=== PATIENT | female | born 1985 | race Two or more races ===

== ENCOUNTER 2021-01-20 14:05 | Emergency (ER) | payer MEDICAID, OTHER ==
[~2021-01-20] VITALS: Ht 165.1 cm; Wt 145.4 kg
[~2021-01-20 14:05] MED LIST: HYDR25TA2 PO; LEVE500T53 PO; METO50 PO; OMEP20 PO; RISP1TAB48 PO
[2021-01-20 15:15] VITALS: BP 150/70
[2021-01-20] MEDS ORDERED: IBUPROFEN 600 MG TABLET PO ONE (15:15)
== END 2021-01-20 15:30 | disposition home or self-care (01) ==
LOC: EMS 14:05
DX: K02.9 Dental caries, unspecified (principal); K05.10 Chronic gingivitis, plaque induced; F32.9 Major depressive disorder, single episode, unspecified; I10 Essential (primary) hypertension; F17.210 Nicotine dependence, cigarettes, uncomplicated; F12.90 Cannabis use, unspecified, uncomplicated
CPT/HCPCS: 99283

== ENCOUNTER 2021-12-23 03:38 | Inpatient (IN) | payer MEDICAID, OTHER ==
[~2021-12-23] VITALS: Ht 165.1 cm; Wt 140.2 kg
[~2021-12-23 03:38] MED LIST changes: +LEVE500T20 PO; -LEVE500T53 PO
[2021-12-23] MEDS ORDERED: HALOPERIDOL 5 MG TABLET PO PRN (04:15)
[2021-12-23 04:31] LABS: GLUCOMETER DEV NAME(LOC) POC.BV
[2021-12-23] MEDS ORDERED: ACETAMINOPHEN 325 MG TABLET PO PRN (06:15)
[2021-12-23] MEDS ORDERED: ONDANSETRON HCL 4 MG TABLET PO PRN (06:15)
[2021-12-23] MEDS ORDERED: GuaiFENesin/D-METHORPHAN [SUGAR-FREE] 200-20MG/10 ML SYRUP UDCUP PO PRN (06:15)
[2021-12-23] MEDS ORDERED: PETROLATUM,WHITE 28 GM JELLY TP PRN (06:15)
[2021-12-23] MEDS ORDERED: CloNIDine HCL 0.1 MG TABLET PO PRN (06:15)
[2021-12-23] MEDS ORDERED: ALBUTEROL SULFATE HFA 90 MCG/PUFF 8 GM INHALER IH PRN (06:15)
[2021-12-23] MEDS ORDERED: LOPERAMIDE HCL 2 MG CAPSULE PO PRN (06:15)
[2021-12-23] MEDS ORDERED: MAGNESIUM HYDROXIDE SUSPENSION 30 ML UDCUP PO PRN (06:15)
[2021-12-23] MEDS ORDERED: MAG HYDROX/AL HYDROX/SIMETH ES 30 ML SUSPENSION UDCUP PO PRN (06:15)
[2021-12-23] MEDS ORDERED: DOCUSATE SODIUM 100 MG CAPSULE PO PRN (06:15)
[2021-12-23 07:38] LABS: HEMATOCRIT 39.6 % (36-46); HEMOGLOBIN 12.6 g/dL (12.0-16.0); MEAN CORPUSCULAR HEMOGLOBIN 26.3 pg (26.0-34.0); MEAN CORPUSCULAR HGB CONC 31.9 G/dL (31.0-37.0); MEAN CORPUSCULAR VOLUME 82 fL (80-100); PLATELET COUNT (AUTO) 341 K/uL (150-450); RED BLOOD CELL COUNT(AUTO) 4.81 MIL/uL (4.00-5.20)
[2021-12-23 07:45] LABS: BAND NEUTROPHILS % (MANUAL) 1 % (0-5); LYMPHOCYTES % (MANUAL) 10 % (22-44); MONOCYTES % (MANUAL) 7 % (2-9); SEGMENTED NEUTROPHILS % 82 % (40-70)
[2021-12-23 07:46] LABS: HEMOGLOBIN A1C 6.2 % (3.8-5.6)
[2021-12-23 07:57] LABS: ALANINE AMINOTRANSFERASE 29 U/L (12-78); ALBUMIN 3.5 g/dL (3.4-5.0); ALKALINE PHOSPHATASE 109 U/L (46-116); ANION GAP 11 mmol/L (8-16); ASPARTATE AMINOTRANSFERASE 22 U/L (15-37); BILIRUBIN,TOTAL 0.4 mg/dL (0.1-1.0); CALCIUM, TOTAL 9.3 mg/dL (8.8-10.5); CARBON DIOXIDE 26 mmol/L (22-29); CHLORIDE 99 mmol/L (98-107); CHOL/HDL RATIO 2.3 (3.9-5.7); CHOLESTEROL 142 mg/dL (131-200); CREATININE 0.57 mg/dL (0.60-1.30); GLUCOSE,RANDOM 110 mg/dL (70-110); HDL CHOLESTEROL 63 mg/dL (40-60); LDL CHOL (CALC.) 69 mg/dL (0-130); POTASSIUM 3.6 mmol/L (3.5-5.1); SODIUM SERUM 136 mmol/L (136-145); TRIGLYCERIDES 52 mg/dL (15-150); UREA NITROGEN, BLOOD 6 mg/dL (7-18)
[2021-12-23 07:58] LABS: GLOMERULAR FILTR. RATE CALC > 60 mL/min (>60)
[2021-12-23] MEDS: HYDROCHLOROTHIAZIDE 25 MG TABLET PO SCH (08:10)
[2021-12-23] MEDS: LevETIRAcetam 500 MG TABLET PO SCH ×2 (08:10→16:14)
[2021-12-23] MEDS: OMEPRAZOLE 20 MG CAPSULE PO SCH (08:10)
[2021-12-23] MEDS: METOPROLOL TARTRATE 25 MG TABLET PO SCH ×2 (08:10→16:14)
[2021-12-23 08:26] VITALS: BP 147/88
[2021-12-23 08:28] LABS: THYROID STIMULATING HORMONE 2.03 uIU/mL (0.36-3.74)
[2021-12-23] MEDS: RisperiDONE 1 MG TABLET PO SCH ×2 (11:17→20:06)
[2021-12-23 16:07] VITALS: BP 132/71
[2021-12-23] MEDS: LORazepam 2 MG TABLET PO PRN (16:14)
[2021-12-24 00:17] VITALS: BP 130/68
[2021-12-24] MEDS: IBUPROFEN 400 MG TABLET PO PRN (01:26)
[2021-12-24 07:46] LABS: BASOPHILS % (AUTO) 0.5 % (0.0-2.0); EOSINOPHILS % (AUTO) 0.2 % (1.0-6.0); HEMATOCRIT 41.7 % (36-46); HEMOGLOBIN 13.4 g/dL (12.0-16.0); LYMPHOCYTES # (AUTO) 2.5 K/uL (1.0-4.8); LYMPHOCYTES % (AUTO) 16.9 % (22.0-44.0); MEAN CORPUSCULAR HEMOGLOBIN 26.5 pg (26.0-34.0); MEAN CORPUSCULAR HGB CONC 32.1 G/dL (31.0-37.0); MEAN CORPUSCULAR VOLUME 83 fL (80-100); MONOCYTES # (AUTO) 1.4 K/uL (0.1-1.0); MONOCYTES % (AUTO) 9.3 % (2.0-9.0); NEUTROPHILS # (AUTO) 10.8 K/uL (1.8-7.7); NEUTROPHILS % (AUTO) 73.1 % (40.0-70.0); PLATELET COUNT (AUTO) 322 K/uL (150-450); RED BLOOD CELL COUNT(AUTO) 5.05 MIL/uL (4.00-5.20)
[2021-12-24 07:52] LABS: HEMOGLOBIN A1C 6.2 % (3.8-5.6)
[2021-12-24 08:05] VITALS: BP 126/84
[2021-12-24] MEDS: LevETIRAcetam 500 MG TABLET PO SCH ×2 (08:07→17:01)
[2021-12-24] MEDS: HYDROCHLOROTHIAZIDE 25 MG TABLET PO SCH (08:07)
[2021-12-24] MEDS: OMEPRAZOLE 20 MG CAPSULE PO SCH (08:07)
[2021-12-24] MEDS: RisperiDONE 1 MG TABLET PO SCH ×2 (08:07→20:10)
[2021-12-24] MEDS: METOPROLOL TARTRATE 50 MG TABLET PO SCH ×2 (08:09→17:01)
[2021-12-24 08:37] LABS: ALANINE AMINOTRANSFERASE 29 U/L (12-78); ALBUMIN 3.3 g/dL (3.4-5.0); ALKALINE PHOSPHATASE 102 U/L (46-116); ANION GAP 10 mmol/L (8-16); ASPARTATE AMINOTRANSFERASE 20 U/L (15-37); BILIRUBIN,TOTAL 0.3 mg/dL (0.1-1.0); CALCIUM, TOTAL 9.5 mg/dL (8.8-10.5); CARBON DIOXIDE 29 mmol/L (22-29); CHLORIDE 97 mmol/L (98-107); CHOL/HDL RATIO 2.2 (3.9-5.7); CHOLESTEROL 139 mg/dL (131-200); CREATININE 0.68 mg/dL (0.60-1.30); FREE T4 (FREE THYROXINE) 1.46 ng/dL (0.76-1.46); GLOMERULAR FILTR. RATE CALC > 60 mL/min (>60); GLUCOSE,RANDOM 101 mg/dL (70-110); HCG,QUANTITATIVE < 1 mIU/mL (0-6); HDL CHOLESTEROL 62 mg/dL (40-60); LDL CHOL (CALC.) 64 mg/dL (0-130); POTASSIUM 3.3 mmol/L (3.5-5.1); SODIUM SERUM 136 mmol/L (136-145); THYROID STIMULATING HORMONE 2.01 uIU/mL (0.36-3.74); TOTAL PROTEIN, SERUM 8.2 g/dL (6.4-8.2); TRIGLYCERIDES 63 mg/dL (15-150); UREA NITROGEN, BLOOD 11 mg/dL (7-18)
[2021-12-24] MEDS ORDERED: POTASSIUM CHLORIDE 20 MEQ ER TABLET PO ONE (14:00)
[2021-12-24 16:32] VITALS: BP 105/68
[2021-12-24 17:00] VITALS: BP 132/88
[2021-12-25] MEDS: ZOLPIDEM TARTRATE 10 MG TABLET PO PRN (02:28)
[2021-12-25 03:47] VITALS: BP 146/83
[2021-12-25 09:05] VITALS: BP 138/86
[2021-12-25] MEDS: METOPROLOL TARTRATE 50 MG TABLET PO SCH ×2 (09:05→16:08)
[2021-12-25] MEDS: LevETIRAcetam 500 MG TABLET PO SCH ×2 (09:05→16:08)
[2021-12-25] MEDS: RisperiDONE 1 MG TABLET PO SCH ×2 (09:05→20:12)
[2021-12-25] MEDS: NICOTINE 14 MG/24 HOUR PATCH TD PRN (09:05)
[2021-12-25] MEDS: HYDROCHLOROTHIAZIDE 25 MG TABLET PO SCH (09:05)
[2021-12-25] MEDS: OMEPRAZOLE 20 MG CAPSULE PO SCH (09:05)
[2021-12-25] MEDS: LORazepam 2 MG TABLET PO PRN (15:43)
[2021-12-25 16:59] VITALS: BP 159/89
[2021-12-25 18:00] VITALS: BP 133/88
[2021-12-26 05:40] VITALS: BP 144/89
[2021-12-26 08:29] VITALS: BP 145/84
[2021-12-26 08:54] LABS: AMPHET/METH SCREEN,URINE NEGATIVE (NEGATIVE); BARBITURATE SCREEN, URINE NEGATIVE (NEGATIVE); BENZODIAZEPINES SCREEN,URINE NEGATIVE (NEGATIVE); CANNABINOID SCREEN,URINE POSITIVE (NEGATIVE); COCAINE SCREEN,URINE NEGATIVE (NEGATIVE); METHADONE SCREEN, URINE NEGATIVE (NEGATIVE); OPIATE SCREEN,URINE NEGATIVE (NEGATIVE)
[2021-12-26 08:56] LABS: PHENCYCLIDINE SCREEN,URINE NEGATIVE (NEGATIVE)
[2021-12-26] MEDS: HYDROCHLOROTHIAZIDE 25 MG TABLET PO SCH (09:42)
[2021-12-26] MEDS: RisperiDONE 1 MG TABLET PO SCH ×2 (09:42→20:59)
[2021-12-26] MEDS: OMEPRAZOLE 20 MG CAPSULE PO SCH (09:42)
[2021-12-26] MEDS: LevETIRAcetam 500 MG TABLET PO SCH ×2 (09:42→16:22)
[2021-12-26] MEDS: METOPROLOL TARTRATE 50 MG TABLET PO SCH ×2 (09:43→16:22)
[2021-12-26] MEDS: SERTRALINE HCL 50 MG TABLET PO SCH (10:52)
[2021-12-26 16:48] VITALS: BP 160/75
[2021-12-26 19:08] VITALS: BP 157/71
[2021-12-26] MEDS: ZOLPIDEM TARTRATE 10 MG TABLET PO PRN (21:05)
[2021-12-27 01:26] VITALS: BP 140/90
[2021-12-27] MEDS: LORazepam 2 MG TABLET PO PRN (01:30)
[2021-12-27 08:29] VITALS: BP 152/106
[2021-12-27] MEDS: LevETIRAcetam 500 MG TABLET PO SCH ×2 (09:08→16:12)
[2021-12-27] MEDS: HYDROCHLOROTHIAZIDE 25 MG TABLET PO SCH (09:08)
[2021-12-27] MEDS: METOPROLOL TARTRATE 50 MG TABLET PO SCH ×2 (09:08→16:12)
[2021-12-27] MEDS: OMEPRAZOLE 20 MG CAPSULE PO SCH (09:08)
[2021-12-27] MEDS: SERTRALINE HCL 50 MG TABLET PO SCH (09:08)
[2021-12-27] MEDS: RisperiDONE 1 MG TABLET PO SCH ×2 (09:08→20:08)
[2021-12-27] MEDS: NICOTINE 14 MG/24 HOUR PATCH TD PRN (09:12)
[2021-12-27 13:00] VITALS: BP 146/76
[2021-12-27 16:30] VITALS: BP 150/86
[2021-12-27] MEDS: ZOLPIDEM TARTRATE 10 MG TABLET PO PRN (20:08)
[2021-12-28 00:42] VITALS: BP 140/82
[2021-12-28] MEDS: LORazepam 2 MG TABLET PO PRN ×2 (03:18→16:41)
[2021-12-28 03:21] VITALS: BP 142/93
[2021-12-28 08:10] VITALS: BP 155/95
[2021-12-28] MEDS: OMEPRAZOLE 20 MG CAPSULE PO SCH (08:35)
[2021-12-28] MEDS: RisperiDONE 1 MG TABLET PO SCH ×2 (08:35→20:10)
[2021-12-28] MEDS: LevETIRAcetam 500 MG TABLET PO SCH ×2 (08:35→16:30)
[2021-12-28] MEDS: SERTRALINE HCL 50 MG TABLET PO SCH (08:35)
[2021-12-28] MEDS: HYDROCHLOROTHIAZIDE 25 MG TABLET PO SCH (08:36)
[2021-12-28] MEDS: METOPROLOL TARTRATE 50 MG TABLET PO SCH ×2 (08:36→16:30)
[2021-12-28] MEDS: NICOTINE 14 MG/24 HOUR PATCH TD PRN (12:19)
[2021-12-28 15:16] LABS: GLUCOMETER DEV NAME(LOC) POC.BV
[2021-12-28 16:16] VITALS: BP 145/71
[2021-12-28] MEDS: TraZODone HCL 100 MG TABLET PO SCH (20:10)
[2021-12-29 01:12] VITALS: BP 141/86
[2021-12-29 08:14] VITALS: BP 157/90
[2021-12-29] MEDS: RisperiDONE 1 MG TABLET PO SCH ×2 (08:29→20:55)
[2021-12-29] MEDS: FOLIC ACID 1 MG TABLET PO SCH (08:29)
[2021-12-29] MEDS: METOPROLOL TARTRATE 50 MG TABLET PO SCH ×2 (08:29→16:32)
[2021-12-29] MEDS: SERTRALINE HCL 50 MG TABLET PO SCH (08:29)
[2021-12-29] MEDS: OMEPRAZOLE 20 MG CAPSULE PO SCH (08:29)
[2021-12-29] MEDS: LevETIRAcetam 500 MG TABLET PO SCH ×2 (08:29→16:32)
[2021-12-29] MEDS: HYDROCHLOROTHIAZIDE 25 MG TABLET PO SCH (08:29)
[2021-12-29] MEDS ORDERED: THIAMINE 100 MG TABLET PO ONE (09:00)
[2021-12-29 16:37] VITALS: BP 147/87
[2021-12-29] MEDS: LORazepam 2 MG TABLET PO PRN (17:08)
[2021-12-29] MEDS: TraZODone HCL 100 MG TABLET PO SCH (20:54)
[2021-12-30 01:07] VITALS: BP 140/87
[2021-12-30 02:40] VITALS: BP 138/85
[2021-12-30 08:18] VITALS: BP 137/83
[2021-12-30] MEDS: METOPROLOL TARTRATE 50 MG TABLET PO SCH ×2 (08:24→16:11)
[2021-12-30] MEDS: FOLIC ACID 1 MG TABLET PO SCH (08:24)
[2021-12-30] MEDS: OMEPRAZOLE 20 MG CAPSULE PO SCH (08:24)
[2021-12-30] MEDS: SERTRALINE HCL 50 MG TABLET PO SCH (08:24)
[2021-12-30] MEDS: RisperiDONE 1 MG TABLET PO SCH ×2 (08:24→20:07)
[2021-12-30] MEDS: LevETIRAcetam 500 MG TABLET PO SCH ×2 (08:24→16:11)
[2021-12-30] MEDS: HYDROCHLOROTHIAZIDE 25 MG TABLET PO SCH (08:24)
[2021-12-30] MEDS: NICOTINE 14 MG/24 HOUR PATCH TD PRN (14:44)
[2021-12-30 16:21] VITALS: BP 154/80
[2021-12-30] MEDS: LORazepam 2 MG TABLET PO PRN (16:29)
[2021-12-30] MEDS: TraZODone HCL 100 MG TABLET PO SCH (20:07)
[2021-12-31 00:39] VITALS: BP 128/85
[2021-12-31] MEDS: HYDROCHLOROTHIAZIDE 25 MG TABLET PO SCH (08:23)
[2021-12-31] MEDS: SERTRALINE HCL 50 MG TABLET PO SCH (08:23)
[2021-12-31] MEDS: LevETIRAcetam 500 MG TABLET PO SCH ×2 (08:23→16:10)
[2021-12-31] MEDS: RisperiDONE 1 MG TABLET PO SCH ×2 (08:23→20:33)
[2021-12-31] MEDS: METOPROLOL TARTRATE 50 MG TABLET PO SCH ×2 (08:23→16:10)
[2021-12-31] MEDS: FOLIC ACID 1 MG TABLET PO SCH (08:23)
[2021-12-31] MEDS: OMEPRAZOLE 20 MG CAPSULE PO SCH (08:23)
[2021-12-31 09:30] VITALS: BP 151/84
[2021-12-31] MEDS: LORazepam 2 MG TABLET PO PRN (16:10)
[2021-12-31 16:13] VITALS: BP 153/84
[2021-12-31] MEDS: NICOTINE 14 MG/24 HOUR PATCH TD PRN (16:15)
[2021-12-31] MEDS: TraZODone HCL 100 MG TABLET PO SCH (20:33)
[2022-01-01 02:22] VITALS: BP 143/85
[2022-01-01 05:11] VITALS: BP 138/80
[2022-01-01] MEDS: IBUPROFEN 400 MG TABLET PO PRN (05:11)
[2022-01-01] MEDS: METOPROLOL TARTRATE 50 MG TABLET PO SCH ×2 (08:31→16:10)
[2022-01-01] MEDS: LevETIRAcetam 500 MG TABLET PO SCH ×2 (08:31→16:10)
[2022-01-01] MEDS: FOLIC ACID 1 MG TABLET PO SCH (08:31)
[2022-01-01] MEDS: OMEPRAZOLE 20 MG CAPSULE PO SCH (08:31)
[2022-01-01] MEDS: RisperiDONE 1 MG TABLET PO SCH ×2 (08:31→20:07)
[2022-01-01] MEDS: HYDROCHLOROTHIAZIDE 25 MG TABLET PO SCH (08:31)
[2022-01-01] MEDS: SERTRALINE HCL 50 MG TABLET PO SCH (08:31)
[2022-01-01 08:33] VITALS: BP 149/98
[2022-01-01] MEDS: LORazepam 2 MG TABLET PO PRN (10:44)
[2022-01-01] MEDS: NICOTINE 14 MG/24 HOUR PATCH TD PRN (10:44)
[2022-01-01 16:06] VITALS: BP 152/75
[2022-01-01] MEDS: TraZODone HCL 100 MG TABLET PO SCH (20:07)
[2022-01-02 00:42] VITALS: BP 148/90
[2022-01-02] MEDS: LORazepam 2 MG TABLET PO PRN ×3 (02:56→17:53)
[2022-01-02 08:00] VITALS: BP 180/116
[2022-01-02] MEDS: HYDROCHLOROTHIAZIDE 25 MG TABLET PO SCH (08:40)
[2022-01-02] MEDS: SERTRALINE HCL 50 MG TABLET PO SCH (08:40)
[2022-01-02] MEDS: FOLIC ACID 1 MG TABLET PO SCH (08:40)
[2022-01-02] MEDS: OMEPRAZOLE 20 MG CAPSULE PO SCH (08:40)
[2022-01-02] MEDS: RisperiDONE 1 MG TABLET PO SCH ×2 (08:40→20:20)
[2022-01-02] MEDS: LevETIRAcetam 500 MG TABLET PO SCH ×2 (08:40→16:24)
[2022-01-02] MEDS: METOPROLOL TARTRATE 50 MG TABLET PO SCH ×2 (08:40→16:24)
[2022-01-02 10:16] VITALS: BP 163/102
[2022-01-02] MEDS: AmLODIPine BESYLATE 5 MG TABLET PO SCH (10:48)
[2022-01-02] MEDS: NICOTINE 14 MG/24 HOUR PATCH TD PRN (11:01)
[2022-01-02 13:42] VITALS: BP 149/89
[2022-01-02 16:05] VITALS: BP 158/85
[2022-01-02] MEDS: TraZODone HCL 100 MG TABLET PO SCH (20:20)
[2022-01-03 00:36] VITALS: BP 149/82
[2022-01-03 08:02] VITALS: BP 162/99
[2022-01-03] MEDS: METOPROLOL TARTRATE 50 MG TABLET PO SCH ×2 (08:08→16:49)
[2022-01-03] MEDS: AmLODIPine BESYLATE 5 MG TABLET PO SCH (08:09)
[2022-01-03] MEDS: OMEPRAZOLE 20 MG CAPSULE PO SCH (08:09)
[2022-01-03] MEDS: RisperiDONE 1 MG TABLET PO SCH ×2 (08:09→20:58)
[2022-01-03] MEDS: FOLIC ACID 1 MG TABLET PO SCH (08:09)
[2022-01-03] MEDS: LevETIRAcetam 500 MG TABLET PO SCH ×2 (08:09→16:49)
[2022-01-03] MEDS: HYDROCHLOROTHIAZIDE 25 MG TABLET PO SCH (08:09)
[2022-01-03] MEDS: SERTRALINE HCL 50 MG TABLET PO SCH (08:09)
[2022-01-03] MEDS: LORazepam 2 MG TABLET PO PRN ×2 (08:51→14:56)
[2022-01-03] MEDS: NICOTINE 14 MG/24 HOUR PATCH TD PRN (14:59)
[2022-01-03 16:05] VITALS: BP 145/86
[2022-01-03] MEDS: TraZODone HCL 100 MG TABLET PO SCH (20:58)
[2022-01-04 01:58] VITALS: BP 148/84
[2022-01-04 05:42] VITALS: BP 149/98
[2022-01-04] MEDS: LORazepam 2 MG TABLET PO PRN ×2 (05:47→18:13)
[2022-01-04 07:41] LABS: GLUCOMETER DEV NAME(LOC) POC.BV
[2022-01-04 08:07] VITALS: BP 141/78
[2022-01-04] MEDS: RisperiDONE 1 MG TABLET PO SCH ×2 (08:09→20:03)
[2022-01-04] MEDS: AmLODIPine BESYLATE 5 MG TABLET PO SCH (08:09)
[2022-01-04] MEDS: OMEPRAZOLE 20 MG CAPSULE PO SCH (08:09)
[2022-01-04] MEDS: METOPROLOL TARTRATE 50 MG TABLET PO SCH ×2 (08:09→16:02)
[2022-01-04] MEDS: SERTRALINE HCL 50 MG TABLET PO SCH (08:10)
[2022-01-04] MEDS: FOLIC ACID 1 MG TABLET PO SCH (08:10)
[2022-01-04] MEDS: HYDROCHLOROTHIAZIDE 25 MG TABLET PO SCH (08:10)
[2022-01-04] MEDS: LevETIRAcetam 500 MG TABLET PO SCH ×2 (08:10→16:02)
[2022-01-04] MEDS: BusPIRone HCL 5 MG TABLET PO SCH ×3 (12:38→20:03)
[2022-01-04 16:04] VITALS: BP 140/85
[2022-01-04] MEDS: TraZODone HCL 100 MG TABLET PO SCH (20:03)
[2022-01-05 00:42] VITALS: BP 142/81
[2022-01-05] MEDS: RisperiDONE 1 MG TABLET PO SCH ×2 (08:12→20:21)
[2022-01-05] MEDS: HYDROCHLOROTHIAZIDE 25 MG TABLET PO SCH (08:12)
[2022-01-05] MEDS: LevETIRAcetam 500 MG TABLET PO SCH ×2 (08:12→16:02)
[2022-01-05] MEDS: SERTRALINE HCL 50 MG TABLET PO SCH (08:12)
[2022-01-05] MEDS: OMEPRAZOLE 20 MG CAPSULE PO SCH (08:12)
[2022-01-05] MEDS: METOPROLOL TARTRATE 50 MG TABLET PO SCH ×2 (08:12→16:02)
[2022-01-05 08:14] VITALS: BP 158/88
[2022-01-05] MEDS: BusPIRone HCL 5 MG TABLET PO SCH ×3 (08:18→20:21)
[2022-01-05] MEDS: AmLODIPine BESYLATE 5 MG TABLET PO SCH (08:19)
[2022-01-05] MEDS: FOLIC ACID 1 MG TABLET PO SCH (08:19)
[2022-01-05] MEDS: LORazepam 2 MG TABLET PO PRN ×2 (08:19→20:21)
[2022-01-05 16:03] VITALS: BP 154/85
[2022-01-05] MEDS: TraZODone HCL 100 MG TABLET PO SCH (20:21)
[2022-01-06 06:14] VITALS: BP 148/100
[2022-01-06] MEDS ORDERED: AmLODIPine BESYLATE 2.5 MG TABLET PO SCH (09:00)
[2022-01-06] MEDS: METOPROLOL TARTRATE 50 MG TABLET PO SCH ×2 (09:06→16:18)
[2022-01-06] MEDS: HYDROCHLOROTHIAZIDE 25 MG TABLET PO SCH (09:06)
[2022-01-06] MEDS: LevETIRAcetam 500 MG TABLET PO SCH ×2 (09:06→16:18)
[2022-01-06] MEDS: SERTRALINE HCL 50 MG TABLET PO SCH (09:06)
[2022-01-06] MEDS: FOLIC ACID 1 MG TABLET PO SCH (09:06)
[2022-01-06] MEDS: OMEPRAZOLE 20 MG CAPSULE PO SCH (09:06)
[2022-01-06] MEDS: RisperiDONE 1 MG TABLET PO SCH (09:07)
[2022-01-06] MEDS: BusPIRone HCL 5 MG TABLET PO SCH ×2 (09:07→16:18)
[2022-01-06] MEDS: NICOTINE 14 MG/24 HOUR PATCH TD PRN (09:44)
[2022-01-06 09:46] VITALS: BP 141/85
[2022-01-06] MEDS ORDERED: METO50 PO (16:02)
[2022-01-06] MEDS ORDERED: BUSP5TAB20 PO (16:02)
[2022-01-06] MEDS ORDERED: TRAZ-257 PO (16:02)
[2022-01-06] MEDS ORDERED: OMEP20 PO (16:02)
[2022-01-06] MEDS ORDERED: LEVE500T20 PO (16:02)
[2022-01-06] MEDS ORDERED: RISP1TAB48 PO (16:02)
[2022-01-06] MEDS ORDERED: SERT-439 PO (16:02)
[2022-01-06] MEDS ORDERED: HYDR25TA2 PO (16:02)
[2022-01-06] MEDS ORDERED: AMLO2.5T96 PO (16:02)
[2022-01-06 16:03] VITALS: BP 158/96
[2022-01-07] MEDS ORDERED: AMLO-257 PO (12:48)
[2022-01-07] MEDS ORDERED: BUSP5TAB20 PO (12:48)
[2022-01-07] MEDS ORDERED: SERT-439 PO (12:49)
[2022-01-07] MEDS ORDERED: TRAZ-186 PO (12:50)
[2022-01-07] MEDS ORDERED: HYDR25TA2 PO (12:51)
[2022-01-07] MEDS ORDERED: LEVE500T8 PO (12:52)
[2022-01-07] MEDS ORDERED: METO50 PO (12:52)
[2022-01-07] MEDS ORDERED: OMEP10SU2 PO (12:53)
[2022-01-07] MEDS ORDERED: RISP1TAB89 PO (12:54)
== END 2022-01-06 21:49 | disposition home or self-care (01) | DRG 750 ==
LOC: B2S 04:00
PROVIDERS: ADMIT Psychiatry & Neurology Psychiatry; ATTEND Psychiatry & Neurology Psychiatry
DX: F25.1 Schizoaffective disorder, depressive type (principal); G40.909 Epilepsy, unspecified, not intractable, without status epilepticus; R45.851 Suicidal ideations; D72.829 Elevated white blood cell count, unspecified; Z20.822 Contact with and (suspected) exposure to COVID-19; F10.10 Alcohol abuse, uncomplicated; F41.9 Anxiety disorder, unspecified; I10 Essential (primary) hypertension; Z59.00 Homelessness unspecified; Z71.41 Alcohol abuse counseling and surveillance of alcoholic; Z79.899 Other long term (current) drug therapy
CPT/HCPCS: 80053; 80061; 80307; 83036; 84436; 84439; 84443; 84702; 85007; 85025; 85027; G0480

== ENCOUNTER 2022-01-07 10:31 | Emergency (ER) | payer MEDICAID, OTHER ==
[~2022-01-07] VITALS: Ht 165.1 cm; Wt 141.0 kg
[~2022-01-07 10:31] MED LIST changes: +AMLO2.5T96 PO; +BUSP5TAB20 PO; +SERT-439 PO; +TRAZ-257 PO
[2022-01-07] MEDS ORDERED: SODIUM CHLORIDE 0.9% 1,000 ML IV ONE (11:15)
[2022-01-07 11:36] VITALS: BP 160/95
[2022-01-07 11:49] LABS: BASOPHILS % (AUTO) 0.7 % (0.0-2.0); EOSINOPHILS % (AUTO) 0.7 % (1.0-6.0); HEMATOCRIT 43.4 % (36-46); LYMPHOCYTES % (AUTO) 16.6 % (22.0-44.0); MEAN CORPUSCULAR HEMOGLOBIN 26.4 pg (26.0-34.0); MEAN CORPUSCULAR HGB CONC 32.2 G/dL (31.0-37.0); MEAN CORPUSCULAR VOLUME 82 fL (80-100); MONOCYTES # (AUTO) 0.5 K/uL (0.1-1.0); MONOCYTES % (AUTO) 4.5 % (2.0-9.0); NEUTROPHILS # (AUTO) 9.5 K/uL (1.8-7.7); NEUTROPHILS % (AUTO) 77.5 % (40.0-70.0); PLATELET COUNT (AUTO) 333 K/uL (150-450)
[2022-01-07 11:56] LABS: ANION GAP 4 mmol/L (8-16); CALCIUM, TOTAL 9.4 mg/dL (8.8-10.5); CARBON DIOXIDE 35 mmol/L (22-29); CHLORIDE 98 mmol/L (98-107); CREATININE 0.67 mg/dL (0.60-1.30); GLOMERULAR FILTR. RATE CALC > 60 mL/min (>60); GLUCOSE,RANDOM 104 mg/dL (70-110); POTASSIUM 3.6 mmol/L (3.5-5.1); SODIUM SERUM 137 mmol/L (136-145); UREA NITROGEN, BLOOD 10 mg/dL (7-18)
[2022-01-07 12:01] LABS: ALANINE AMINOTRANSFERASE 74 U/L (12-78); ALBUMIN 3.3 g/dL (3.4-5.0); ALKALINE PHOSPHATASE 128 U/L (46-116); ASPARTATE AMINOTRANSFERASE 36 U/L (15-37); BILIRUBIN,TOTAL 0.3 mg/dL (0.1-1.0); LIPASE 75 U/L (73-393); TOTAL PROTEIN, SERUM 8.6 g/dL (6.4-8.2)
[2022-01-07 12:39] LABS: APPEARANCE,URINE CLEAR (CLEAR); BILIRUBIN,URINE NEGATIVE (NEGATIVE); GLUCOSE, URINE (UA) NEGATIVE (NEGATIVE); KETONES,URINE NEGATIVE (NEGATIVE); LEUKOCYTE ESTERASE ,URINE NEGATIVE (NEGATIVE); NITRATE,URINE NEGATIVE (NEGATIVE); OCCULT BLOOD,URINE NEGATIVE (NEGATIVE); PROTEIN,URINE NEGATIVE (NEGATIVE); SPECIFIC GRAVITIY, URINE 1.016 (1.003-1.030); UROBILINOGEN,URINE <=1.0 mg/dL (<=1.0)
[2022-01-07] MEDS ORDERED: AMLO-257 PO (12:48)
[2022-01-07] MEDS ORDERED: BUSP5TAB20 PO (12:48)
[2022-01-07] MEDS ORDERED: SERT-439 PO (12:49)
[2022-01-07] MEDS ORDERED: TRAZ-186 PO (12:50)
[2022-01-07] MEDS ORDERED: HYDR25TA2 PO (12:51)
[2022-01-07] MEDS ORDERED: LEVE500T8 PO (12:52)
[2022-01-07] MEDS ORDERED: METO50 PO (12:52)
[2022-01-07] MEDS ORDERED: OMEP10SU2 PO (12:53)
[2022-01-07] MEDS ORDERED: RISP1TAB89 PO (12:54)
== END 2022-01-07 13:12 | disposition home or self-care (01) ==
LOC: EMS 10:34
DX: R11.2 Nausea with vomiting, unspecified (principal); I10 Essential (primary) hypertension; F32.9 Major depressive disorder, single episode, unspecified; F17.210 Nicotine dependence, cigarettes, uncomplicated; F12.90 Cannabis use, unspecified, uncomplicated; Z76.0 Encounter for issue of repeat prescription; Z79.899 Other long term (current) drug therapy
CPT/HCPCS: 36415; 74019; 80053; 81003; 83690; 84703; 85025; 96360; 99284; J7030

== ENCOUNTER 2022-07-23 16:48 | Inpatient (IN) | payer OTHER ==
[~2022-07-23] VITALS: Ht 160 cm; Wt 127.3 kg
[~2022-07-23 16:48] MED LIST changes: +AMLO-257 PO; +LEVE500T8 PO; +OMEP10SU2 PO; +RISP1TAB89 PO; +TRAZ-186 PO
[2022-07-23] MEDS ORDERED: MethylPREDNISolone SOD SUCC 125 MG/2 ML VIAL IM ONE (17:15)
[2022-07-23] MEDS ORDERED: ONDANSETRON HCL 4 MG TABLET PO ONE (17:15)
[2022-07-23] MEDS ORDERED: IPRATROPIUM BROMIDE 0.5 MG/2.5 ML NEB SOLUTION NEB ONE (17:15)
[2022-07-23] MEDS ORDERED: ALBUTEROL SULFATE 2.5 MG/0.5 ML NEB SOLUTION NEB ONE (17:15)
[2022-07-23] MEDS ORDERED: GuaiFENesin/D-METHORPHAN [SUGAR-FREE] 200-20MG/10 ML SYRUP UDCUP PO ONE (17:15)
[2022-07-23] MEDS ORDERED: ACETAMINOPHEN 500 MG TABLET PO ONE (17:15)
[2022-07-23 17:28] LABS: BASOPHILS % (AUTO) 0.4 % (0.0-2.0); EOSINOPHILS % (AUTO) 3.7 % (1.0-6.0); HEMATOCRIT 37.7 % (36-46); LYMPHOCYTES # (AUTO) 1.4 K/uL (1.0-4.8); LYMPHOCYTES % (AUTO) 15.9 % (22.0-44.0); MEAN CORPUSCULAR HEMOGLOBIN 26.2 pg (26.0-34.0); MEAN CORPUSCULAR HGB CONC 31.7 G/dL (31.0-37.0); MEAN CORPUSCULAR VOLUME 83 fL (80-100); MONOCYTES # (AUTO) 0.8 K/uL (0.1-1.0); MONOCYTES % (AUTO) 9.1 % (2.0-9.0); NEUTROPHILS % (AUTO) 70.9 % (40.0-70.0); PLATELET COUNT (AUTO) 265 K/uL (150-450); RED BLOOD CELL COUNT(AUTO) 4.56 MIL/uL (4.00-5.20); RED CELL DISTRIBUTION WIDTH 16.2 % (11.5-14.5)
[2022-07-23 17:33] LABS: COVID AG,FIA SOURCE NASAL SWAB
[2022-07-23 17:35] LABS: ANION GAP 4 mmol/L (8-16); CALCIUM, TOTAL 8.6 mg/dL (8.8-10.5); CARBON DIOXIDE 31 mmol/L (22-29); CHLORIDE 103 mmol/L (98-107); CREATININE 0.82 mg/dL (0.60-1.30); GLUCOSE,RANDOM 110 mg/dL (70-110); POTASSIUM 3.4 mmol/L (3.5-5.1); SODIUM SERUM 138 mmol/L (136-145); UREA NITROGEN, BLOOD 10 mg/dL (7-18)
[2022-07-23 17:36] LABS: GLOMERULAR FILTR. RATE CALC > 60 mL/min (>60)
[2022-07-23 17:41] LABS: ALANINE AMINOTRANSFERASE 23 U/L (12-78); ALBUMIN 2.8 g/dL (3.4-5.0); ALKALINE PHOSPHATASE 89 U/L (46-116); ASPARTATE AMINOTRANSFERASE 16 U/L (15-37); BILIRUBIN,TOTAL 0.2 mg/dL (0.1-1.0); TOTAL PROTEIN, SERUM 6.7 g/dL (6.4-8.2)
[2022-07-23 17:53] LABS: INFLUENZA TYPE A NEGATIVE FOR TYPE A (NEGATIVE); INFLUENZA TYPE B NEGATIVE FOR TYPE B (NEGATIVE)
[2022-07-23] MEDS ORDERED: ALBUTEROL SULFATE 5 MG/ML 20 ML NEB SOLN [BULK] NEB ONE (18:30)
[2022-07-23] MEDS ORDERED: EPINEPHrine 1:1,000 [1 MG/ML] VIAL SQ ONE (18:30)
[2022-07-23] MEDS ORDERED: IPRATROPIUM BROMIDE 0.5 MG/2.5 ML NEB SOLUTION NEB PRN (19:45)
[2022-07-23] MEDS ORDERED: *CLINICAL-CEFTRIAXONE DOSING CLINICAL ONE (19:45)
[2022-07-23] MEDS ORDERED: ALBUTEROL SULFATE 2.5 MG/0.5 ML NEB SOLUTION NEB PRN (19:45)
[2022-07-23] MEDS ORDERED: ONDANSETRON HCL 4 MG/2 ML VIAL IVP PRN (19:45)
[2022-07-23] MEDS ORDERED: POTASSIUM CHLORIDE 10% 40 MEQ/30 ML LIQUID UDCUP PO ONE (20:00)
[2022-07-23] MEDS ORDERED: AZITHROMYCIN 500 MG/NS 250 ML IV SCH (21:00)
[2022-07-23] MEDS ORDERED: BusPIRone HCL 5 MG TABLET PO SCH (21:00)
[2022-07-23] MEDS: BusPIRone HCL 5 MG TABLET PO SCH ×2 (22:00→22:55)
[2022-07-23] MEDS: LevETIRAcetam 500 MG TABLET PO SCH (22:38)
[2022-07-23] MEDS: METOPROLOL TARTRATE 50 MG TABLET PO SCH (22:38)
[2022-07-23] MEDS: CefTRIAXone 1 GM/DEXTROSE 50 ML IV SCH (22:45)
[2022-07-23] MEDS: TraZODone HCL 100 MG TABLET PO SCH (22:55)
[2022-07-24] MEDS: HEPARIN SODIUM,PORCINE 5,000 UNITS/ML VIAL SQ SCH ×3 (00:25→17:14)
[2022-07-24] MEDS: ACETAMINOPHEN 325 MG TABLET PO PRN ×2 (03:53→17:14)
[2022-07-24] MEDS: BENZONATATE 100 MG CAPSULE PO PRN ×2 (04:40→17:14)
[2022-07-24] MEDS: METOPROLOL TARTRATE 50 MG TABLET PO SCH ×2 (06:23→20:46)
[2022-07-24] MEDS ORDERED: NICOTINE 14 MG/24 HOUR PATCH TD ONE (06:30)
[2022-07-24] MEDS ORDERED: NITROGLYCERIN 2% (1 GM=INCH) PACKET TP ONE (07:00)
[2022-07-24] MEDS: SERTRALINE HCL 50 MG TABLET PO SCH (08:53)
[2022-07-24] MEDS: AmLODIPine BESYLATE 2.5 MG TABLET PO SCH (08:53)
[2022-07-24] MEDS: RisperiDONE 1 MG TABLET PO SCH (08:53)
[2022-07-24] MEDS: LevETIRAcetam 500 MG TABLET PO SCH ×2 (08:53→20:46)
[2022-07-24] MEDS ORDERED: BusPIRone HCL 5 MG TABLET PO SCH (09:00)
[2022-07-24] MEDS ORDERED: AmLODIPine BESYLATE 2.5 MG TABLET PO SCH (09:00)
[2022-07-24] MEDS: MethylPREDNISolone SOD SUCC 125 MG/2 ML VIAL IVP SCH (09:28)
[2022-07-24] MEDS: HYDROCHLOROTHIAZIDE 25 MG TABLET PO SCH (09:39)
[2022-07-24] MEDS: OMEPRAZOLE 20 MG CAPSULE PO SCH (09:39)
[2022-07-24 12:30] VITALS: BP 139/91
[2022-07-24 16:05] LABS: BASOPHILS % (AUTO) 0.1 % (0.0-2.0); EOSINOPHILS % (AUTO) 0 % (1.0-6.0); HEMATOCRIT 41.9 % (36-46); HEMOGLOBIN 13.1 g/dL (12.0-16.0); LYMPHOCYTES # (AUTO) 0.8 K/uL (1.0-4.8); LYMPHOCYTES % (AUTO) 5.5 % (22.0-44.0); MEAN CORPUSCULAR HEMOGLOBIN 25.8 pg (26.0-34.0); MEAN CORPUSCULAR HGB CONC 31.2 G/dL (31.0-37.0); MEAN CORPUSCULAR VOLUME 83 fL (80-100); MONOCYTES # (AUTO) 0.6 K/uL (0.1-1.0); MONOCYTES % (AUTO) 3.8 % (2.0-9.0); NEUTROPHILS # (AUTO) 13.4 K/uL (1.8-7.7); PLATELET COUNT (AUTO) 313 K/uL (150-450); RED BLOOD CELL COUNT(AUTO) 5.07 MIL/uL (4.00-5.20)
[2022-07-24 16:06] LABS: NEUTROPHILS % (AUTO) 90.6 % (40.0-70.0)
[2022-07-24 16:16] LABS: ANION GAP 8 mmol/L (8-16); CALCIUM, TOTAL 10.1 mg/dL (8.8-10.5); CARBON DIOXIDE 29 mmol/L (22-29); CHLORIDE 102 mmol/L (98-107); CREATININE 0.64 mg/dL (0.60-1.30); GLUCOSE,RANDOM 111 mg/dL (70-110); POTASSIUM 4.1 mmol/L (3.5-5.1); SODIUM SERUM 139 mmol/L (136-145); UREA NITROGEN, BLOOD 11 mg/dL (7-18)
[2022-07-24 16:19] LABS: GLOMERULAR FILTR. RATE CALC > 60 mL/min (>60)
[2022-07-24 16:35] VITALS: BP 150/99
[2022-07-24] MEDS ORDERED: SODIUM CHLORIDE 0.9% 250 ML IV ONE (20:23)
[2022-07-24 20:40] VITALS: BP 158/67
[2022-07-24] MEDS: CefTRIAXone 1 GM/DEXTROSE 50 ML IV SCH (20:46)
[2022-07-24] MEDS: TraZODone HCL 100 MG TABLET PO SCH (20:46)
[2022-07-25] VITALS (7 sets, daily range): BP systolic 120–160; BP diastolic 85–109
[2022-07-25] MEDS: HEPARIN SODIUM,PORCINE 5,000 UNITS/ML VIAL SQ SCH ×3 (00:43→17:06)
[2022-07-25] MEDS: GuaiFENesin/D-METHORPHAN [SUGAR-FREE] 200-20MG/10 ML SYRUP UDCUP PO PRN ×2 (04:37→19:40)
[2022-07-25] MEDS: MethylPREDNISolone SOD SUCC 125 MG/2 ML VIAL IVP SCH (07:55)
[2022-07-25] MEDS: HYDROCHLOROTHIAZIDE 25 MG TABLET PO SCH (07:56)
[2022-07-25] MEDS: METOPROLOL TARTRATE 50 MG TABLET PO SCH ×2 (07:56→20:44)
[2022-07-25] MEDS: AmLODIPine BESYLATE 2.5 MG TABLET PO SCH (07:56)
[2022-07-25] MEDS: OMEPRAZOLE 20 MG CAPSULE PO SCH (07:56)
[2022-07-25] MEDS: BENZONATATE 100 MG CAPSULE PO PRN (07:56)
[2022-07-25] MEDS: ACETAMINOPHEN 325 MG TABLET PO PRN ×2 (07:57→19:39)
[2022-07-25] MEDS: LevETIRAcetam 500 MG TABLET PO SCH ×2 (07:57→20:44)
[2022-07-25] MEDS: RisperiDONE 1 MG TABLET PO SCH (09:07)
[2022-07-25] MEDS: SERTRALINE HCL 50 MG TABLET PO SCH (09:07)
[2022-07-25] MEDS ORDERED: HydrALAZINE HCL 25 MG TABLET PO ONE (17:00)
[2022-07-25] MEDS: CefTRIAXone 1 GM/DEXTROSE 50 ML IV SCH (19:49)
[2022-07-25] MEDS: TraZODone HCL 100 MG TABLET PO SCH (20:44)
[2022-07-26] MEDS: HEPARIN SODIUM,PORCINE 5,000 UNITS/ML VIAL SQ SCH ×2 (00:03→08:58)
[2022-07-26] MEDS: HydrALAZINE HCL 25 MG TABLET PO SCH ×2 (00:04→08:59)
[2022-07-26 04:15] VITALS: BP 156/85
[2022-07-26 07:19] VITALS: BP 149/62
[2022-07-26 07:36] LABS: ANION GAP 9 mmol/L (8-16); CALCIUM, TOTAL 9.8 mg/dL (8.8-10.5); CARBON DIOXIDE 31 mmol/L (22-29); CHLORIDE 96 mmol/L (98-107); CREATININE 0.79 mg/dL (0.60-1.30); GLUCOSE,RANDOM 95 mg/dL (70-110); POTASSIUM 3.6 mmol/L (3.5-5.1); SODIUM SERUM 136 mmol/L (136-145); UREA NITROGEN, BLOOD 16 mg/dL (7-18)
[2022-07-26 07:37] LABS: GLOMERULAR FILTR. RATE CALC > 60 mL/min (>60)
[2022-07-26] MEDS: BENZONATATE 100 MG CAPSULE PO PRN (08:57)
[2022-07-26] MEDS: HYDROCHLOROTHIAZIDE 25 MG TABLET PO SCH (08:57)
[2022-07-26] MEDS: OMEPRAZOLE 20 MG CAPSULE PO SCH (08:58)
[2022-07-26] MEDS: ACETAMINOPHEN 325 MG TABLET PO PRN (08:59)
[2022-07-26] MEDS: AmLODIPine BESYLATE 2.5 MG TABLET PO SCH (09:00)
[2022-07-26] MEDS ORDERED: PredniSONE 20 MG TABLET PO SCH (09:00)
[2022-07-26] MEDS: LevETIRAcetam 500 MG TABLET PO SCH (09:00)
[2022-07-26] MEDS: METOPROLOL TARTRATE 50 MG TABLET PO SCH (09:00)
[2022-07-26] MEDS: SERTRALINE HCL 50 MG TABLET PO SCH (10:21)
[2022-07-26] MEDS: RisperiDONE 1 MG TABLET PO SCH (10:21)
[2022-07-26 11:42] VITALS: BP 138/95
[2022-07-26] MEDS ORDERED: GUAIFDM PO (13:07)
[2022-07-26] MEDS ORDERED: PRED-554 PO (13:07)
[2022-07-26] MEDS ORDERED: HYDR25TA84 PO (13:07)
[2022-07-26] MEDS ORDERED: BENZ-70 PO (13:07)
[2022-07-26] MEDS ORDERED: AMOX1TAB16 PO (13:08)
[2022-07-26] MEDS ORDERED: IPRA4AER IH (13:08)
[2022-07-26] MEDS ORDERED: BUDE90AE IH (13:08)
[2022-07-26 14:23] VITALS: BP 140/91
== END 2022-07-26 16:30 | disposition home or self-care (01) | DRG 139 ==
LOC: EMS 16:48 → 5S 07-24 06:35
PROVIDERS: ADMIT Internal Medicine; ATTEND Internal Medicine
DX: J18.9 Pneumonia, unspecified organism (principal); J96.01 Acute respiratory failure with hypoxia; F25.1 Schizoaffective disorder, depressive type; F17.200 Nicotine dependence, unspecified, uncomplicated; J44.0 Chronic obstructive pulmonary disease with (acute) lower respiratory infection; I10 Essential (primary) hypertension; E66.01 Morbid (severe) obesity due to excess calories; J44.1 Chronic obstructive pulmonary disease with (acute) exacerbation; F19.10 Other psychoactive substance abuse, uncomplicated; F15.10 Other stimulant abuse, uncomplicated; E87.6 Hypokalemia; Z20.822 Contact with and (suspected) exposure to COVID-19; Z79.899 Other long term (current) drug therapy; Z88.8 Allergy status to other drugs, medicaments and biological substances; Z68.42 Body mass index [BMI] 45.0-49.9, adult
CPT/HCPCS: 71045; 80048; 80053; 83735; 84703; 85025; 85379; 87804; 94644; 99285; G0378; J0171; J0456; J0696; J1644; J2930; J7050; Q0162; 36415-L1; 36415-TC; J7611; J7613; U0003